=== PATIENT | female | born 1950 ===

== ENCOUNTER 2020-05-30 04:57 | Day surgery (SDC) | payer BC, OTHER ==
[2020-05-30] MEDS ORDERED: TROP1%/CYCLOPEN 1%/PHENYL 2.5% DROPS OPHTH ONE (06:15)
[2020-05-30] MEDS ORDERED: MIDAZOLAM INJ 2 MG/2 ML VIAL ONE (06:42)
[2020-05-30] MEDS ORDERED: DEXAMETHASONE 0.1% OPHTH SOL 1 DROP LEFT_EYE ONE ×2 (06:47→07:12)
[2020-05-30] MEDS ORDERED: PROPARACAINE 0.5% OPHTH SOL 15 ML BTTL LEFT_EYE ONE ×2 (06:47→07:12)
[2020-05-30] MEDS ORDERED: LIDOCAINE 1% 2 ML VIAL INJ ONE ×2 (06:47→07:12)
[2020-05-30] MEDS ORDERED: MOXIFLOXACIN HCL (OPHTH) 1 DROP DROPS LEFT_EYE ONE ×2 (06:47→07:12)
[2020-05-30] MEDS ORDERED: BRIMONIDINE 0.2% OPHTH DROPS LEFT_EYE ONE ×2 (06:48→07:12)
[2020-05-30] MEDS ORDERED: TOBRAMYCIN SULF 0.3 % OPHT SOL 1 DROP LEFT_EYE ONE ×2 (06:48→07:12)
[2020-05-30 09:14] VITALS: TEMP 97.6
== END 2020-05-30 08:12 | disposition home or self-care (01) ==
LOC: AMB 04:57
PROVIDERS: ATTEND Ophthalmology
DX: H25.12 Age-related nuclear cataract, left eye (principal); Z79.82 Long term (current) use of aspirin; Z79.899 Other long term (current) drug therapy
CPT/HCPCS: 00142; 66984; J2250

== ENCOUNTER 2020-06-13 06:51 | Day surgery (SDC) | payer BC, OTHER ==
[2020-06-13] MEDS ORDERED: TROP1%/CYCLOPEN 1%/PHENYL 2.5% DROPS OPHTH ONE (06:52)
[2020-06-13] MEDS ORDERED: MIDAZOLAM INJ 2 MG/2 ML VIAL ONE (08:14)
[2020-06-13] MEDS ORDERED: PROPARACAINE 0.5% OPHTH SOL 15 ML BTTL RIGHT_EYE ONE (09:52)
[2020-06-13] MEDS ORDERED: TOBRAMYCIN SULF 0.3 % OPHT SOL 1 DROP RIGHT_EYE ONE ×2 (09:58→10:03)
[2020-06-13] MEDS ORDERED: LIDOCAINE 1% MPF 2 ML VIAL INJ ONE (09:58)
[2020-06-13] MEDS ORDERED: DEXAMETHASONE 0.1% OPHTH SOL 1 DROP RIGHT_EYE ONE ×2 (09:58→10:03)
[2020-06-13] MEDS ORDERED: MOXIFLOXACIN HCL (OPHTH) 1 DROP DROPS RIGHT_EYE ONE ×2 (09:58→10:03)
[2020-06-13] MEDS ORDERED: BRIMONIDINE 0.2% OPHTH DROPS RIGHT_EYE ONE ×2 (09:59→10:03)
== END 2020-06-13 10:41 | disposition home or self-care (01) ==
LOC: AMB 06:51
PROVIDERS: ATTEND Ophthalmology
DX: H25.11 Age-related nuclear cataract, right eye (principal); Z79.82 Long term (current) use of aspirin; Z79.899 Other long term (current) drug therapy
CPT/HCPCS: 00142; 66984; J2250